=== PATIENT | male | born 1960 | race Caucasian/White ===

== ENCOUNTER 2018-02-07 15:09 | Emergency (ER) | payer MEDICAID, OTHER ==
[~2018-02-07] VITALS: Ht 177.8 cm; Wt 95.3 kg
[~2018-02-07 15:09] MED LIST: ALPR1TAB7 PO; ENALAPRIL PO; HYDR-4072 PO; RIVA20TA PO; TAMS0.4C36 PO; TRIA0.1P11 TOP
[2018-02-07 17:22] LABS: Urine Bacteria NONE SEEN /hpf (None Seen); Urine Blood Negative /uL (Negative); Urine Specific Gravity 1.005 (1.001-1.035); Urine WBC 1 /hpf (0 - 3)
[2018-02-08 01:01] VITALS: BP 152/110
== END 2018-02-08 03:50 | disposition home or self-care (01) ==
LOC: EDBD 15:09 → ER 15:09
DX: I82.401 Acute embolism and thrombosis of unspecified deep veins of right lower extremity (principal); G12.21 Amyotrophic lateral sclerosis; I10 Essential (primary) hypertension; F17.210 Nicotine dependence, cigarettes, uncomplicated
CPT/HCPCS: 73562; 73610; 73630; 81001; 93970

== ENCOUNTER 2018-03-19 11:31 | Observation (INO) | payer MEDICAID, OTHER ==
[~2018-03-19] VITALS: Ht 177.8 cm; Wt 81.6 kg
[2018-03-19 13:12] LABS: Basophils # (auto) 0.1 uL; Basophils % (auto) 0.6 % (0.0-2.0); Eosinophils # (auto) 0.1 uL; Eosinophils % (auto) 1.3 % (0.0-7.0); Hematocrit 46.2 % (41.0-53.0); Hemoglobin 15.9 g/dL (13.5-17.5); Lymphocytes # (auto) 1.1 uL; Lymphocytes % (auto) 11.2 % (10.0-50.0); Mean Corpuscular Hemoglobin 32.9 pg (28.0-32.0); Mean Corpuscular Hgb Conc. 34.4 g/dL (32.0-36.0); Mean Corpuscular Volume 95.7 fL (80.0-100.0); Monocytes # (auto) 0.9 uL; Monocytes % (auto) 9.2 % (0.0-12.0); Neutrophils # (auto) 7.5 uL; Neutrophils % (auto) 77.7 % (37.0-80.0); Platelet Count (auto) 294 10^3/uL (140-450); Red Blood Cells 4.83 10^6/uL (4.5-5.90); Red Cell Distribution Width 13.3 % (11.8-14.3); White Blood Cell 9.6 10^3/uL (4.4-10.8)
[2018-03-19 13:33] LABS: INR 1.26 (0.9-1.15); Partial Thromboplastin Time 39.5 sec (23.78-33.04); Prothrombin Time 13.3 sec (9.27-12.13)
[2018-03-19 13:35] LABS: Albumin 3.9 g/dL (3.4-5.0); BUN/Creatinine Ratio 27.8; Bilirubin, Total 0.5 mg/dL (0.2-1.0); Magnesium 2.6 mg/dL (1.6-2.6); Potassium 4.1 mmol/L (3.5-5.1); Total Protein 7.9 g/dL (6.4-8.2)
[2018-03-19] MEDS ORDERED: LORazepam 2MG/ML-1ML VIAL IV ONE (21:45)
[2018-03-20] MEDS ORDERED: cloNIDine HCL 0.1 MG TAB PO ONE (03:00)
[2018-03-20] MEDS ORDERED: LABETALOL HCL 5 MG/ML ML 20ML VIAL IV ONE (04:15)
[2018-03-20] MEDS ORDERED: ONDANSETRON HCL 4 MG/2 ML VIAL IV ONE (04:15)
[2018-03-20] MEDS ORDERED: LORazepam 2MG/ML-1ML VIAL IV ONE (04:30)
[2018-03-20] MEDS ORDERED: diphenhdrAMINE HCL 50 MG/1 ML VL IV ONE (04:30)
[2018-03-20 08:50] VITALS: BP 149/106
== END 2018-03-20 10:47 | disposition home or self-care (01) | DRG 42 ==
LOC: ER 11:31 → EDBD 11:31 → OVERFLOW 11:32 → ER 03-20 10:47
PROVIDERS: ADMIT Family Medicine; ATTEND Family Medicine
DX: G12.21 Amyotrophic lateral sclerosis (principal); G71.0 Muscular dystrophy; I10 Essential (primary) hypertension; N40.0 Benign prostatic hyperplasia without lower urinary tract symptoms; R94.5 Abnormal results of liver function studies; F10.20 Alcohol dependence, uncomplicated; F17.210 Nicotine dependence, cigarettes, uncomplicated; Z79.899 Other long term (current) drug therapy; Z86.718 Personal history of other venous thrombosis and embolism; Z83.3 Family history of diabetes mellitus
CPT/HCPCS: 36415; 71045; 80053; 83735; 83880; 85025; 85610; 85730; 93005; 93970; 96374; 96375; 96376; 99285; G0378; J1200; J2060; J2405

== ENCOUNTER 2018-04-30 16:38 | Observation (INO) | payer MEDICAID ==
[~2018-04-30] VITALS: Ht 177.8 cm; Wt 90.7 kg
[2018-04-30 18:09] LABS: Basophils # (auto) 0.1 uL; Basophils % (auto) 0.9 % (0.0-2.0); Eosinophils # (auto) 0.3 uL; Eosinophils % (auto) 3.4 % (0.0-7.0); Hematocrit 46.2 % (41.0-53.0); Hemoglobin 15.7 g/dL (13.5-17.5); Lymphocytes # (auto) 1.5 uL; Lymphocytes % (auto) 20.2 % (10.0-50.0); Mean Corpuscular Hemoglobin 32.7 pg (28.0-32.0); Mean Corpuscular Volume 95.9 fL (80.0-100.0); Monocytes # (auto) 0.7 uL; Monocytes % (auto) 9.9 % (0.0-12.0); Neutrophils # (auto) 4.9 uL; Neutrophils % (auto) 65.6 % (37.0-80.0); Nucleated Red Blood Cells % 0.2 %; Platelet Count (auto) 255 10^3/uL (140-450); Red Blood Cells 4.81 10^6/uL (4.5-5.90); Red Cell Distribution Width 12.9 % (11.8-14.3); White Blood Cell 7.5 10^3/uL (4.4-10.8)
[2018-04-30 18:15] LABS: Albumin 3.8 g/dL (3.4-5.0); BUN/Creatinine Ratio 31.3; Bilirubin, Total 0.6 mg/dL (0.2-1.0); Potassium 3.8 mmol/L (3.5-5.1); Total Protein 7.7 g/dL (6.4-8.2)
[2018-04-30 20:56] LABS: Urine WBC None Seen /hpf (0 - 3)
[2018-04-30 21:13] LABS: Urine Amorphous Crystal MOD /hpf (None Seen); Urine Bacteria NONE SEEN /hpf (None Seen); Urine Blood Negative /uL (Negative); Urine Mucus FEW (None Seen); Urine Specific Gravity 1.016 (1.001-1.035)
[2018-04-30 21:18] LABS: Magnesium 2.3 mg/dL (1.6-2.6)
[2018-04-30 21:25] LABS: INR 1.17 (0.9-1.15); Partial Thromboplastin Time 36.9 sec (23.78-33.04); Prothrombin Time 12.4 sec (9.27-12.13)
[2018-05-01 04:29] VITALS: BP 153/105
== END 2018-05-01 10:25 | disposition home or self-care (01) | DRG 861 ==
LOC: ER 16:38 → EDBD 16:38 → OVERFLOW 16:39 → ER 05-01 10:21
PROVIDERS: ADMIT Family Medicine; ATTEND Family Medicine
DX: R60.0 Localized edema (principal); G12.21 Amyotrophic lateral sclerosis; F17.210 Nicotine dependence, cigarettes, uncomplicated; M79.89 Other specified soft tissue disorders; I10 Essential (primary) hypertension; N40.0 Benign prostatic hyperplasia without lower urinary tract symptoms
CPT/HCPCS: 36415; 71045; 80053; 81001; 83735; 83880; 84443; 84484; 85025; 85610; 85730; 93970; 99285; G0378; 93005